=== PATIENT | female | born 1985 | race Caucasian/White ===

== ENCOUNTER 2019-05-30 02:07 | Emergency (ER) | payer SELFPAY, OTHER ==
[2019-05-30] MEDS: DIPHTH/TET/ACEL PERTUSS (ADULT) 0.5 ML VIAL IM* (02:45)
[2019-05-30] MEDS: LIDOCAINE 1% (MPF) 5 ML VIAL INFIL (02:46)
[2019-05-30] MEDS: CEFAZOLIN 1 GM INJ IM (04:18)
[2019-05-30] MEDS: HYDROCODONE/APAP (5/325) TAB PO (07:33)
== END 2019-05-30 07:51 | disposition home or self-care (01) ==
LOC: FTE 02:07
DX: S62.663B Nondisplaced fracture of distal phalanx of left middle finger, initial encounter for open fracture (principal); W50.3XXA Accidental bite by another person, initial encounter; Y92.9 Unspecified place or not applicable; Z23 Encounter for immunization
CPT/HCPCS: 12001; 73140; 81025; 90471; 90715; 96372; 99284-25